=== PATIENT | female | born 1955 | race American Indian/Alaskan Native ===

== ENCOUNTER 2017-08-11 18:31 | Inpatient (IN) | payer BC, MEDICAID, OTHER ==
[2017-08-11 18:32] VITALS: BMI 24.1
[2017-08-11 20:42] LABS: BASO # 0.1 K/uL (0.0-0.2); BASO % 1.2 % (0.0-2.0); EOS # 0.1 K/uL (0.0-0.7); EOS % 0.9 % (0.0-4.0); HEMATOCRIT 38.2 % (34.0-47.0); LYMPH # 2.2 K/uL (1.0-4.3); LYMPH % 25.7 % (20.0-40.0); MEAN CELL VOLUME 95.2 fL (81.0-99.0); MEAN CORPUSCULAR HEMOGLOBIN 31.5 pg (27.0-31.0); MEAN CORPUSCULAR HGB CONC 33.1 g/dL (33.0-37.0); MEAN PLATELET VOLUME 9.6 fL (7.2-11.7); MONO # 0.8 K/uL (0.0-0.8); MONO % 9.4 % (0.0-10.0); NRBC % 0.1 % (0.0-2.0); RED CELL DISTRIBUTION WIDTH 13.3 % (11.5-14.5); WHITE BLOOD COUNT 8.5 K/uL (4.8-10.8)
--- NOTE | 2017-08-11 20:50 | C.PDOC ---
History Of Present Illness 62 year old female presents to the ER prescreened for detox program from heroin and cocaine. Has no physical complaints at this time but reports occasional palpitations at times. She also has uncontrolled hypertension. Patient has a PMHx of HTN, GERD, right foot/right leg surgery from trauma, smokes a pack of cigarettes a day, is on metoprolol and amlodipine, and has no known allergies. Chief Complaint (Nursing): Substance Abuse History Per: Patient History/Exam Limitations: no limitations Onset/Duration Of Symptoms: Days Current Symptoms Are (Timing): Still Present Suicide/Self Injury Attempted (Context): None Modifying Factor(s): Narcotics, Cocaine Severity: Moderate Pain Scale Rating Of: 4 Associated Symptoms: denies: Depression, Suicidal Thoughts, Suicidal Plan Involuntary Hold By: None Recent travel outside of the [place]: No Past Medical History Reviewed: Historical Data, Nursing Documentation, Vital Signs Vital Signs: Last Vital Signs Temp 98.6 F 08/12/17 00:53 Pulse 90 08/12/17 00:53 Resp 18 08/12/17 00:53 BP 166/99 H 08/12/17 00:53 Pulse Ox 99 08/12/17 00:53 - Medical History PMH: GERD, HTN - [facility] DETOXIFICATION SERVICES FOR SUBSTANCE ABUSE TREATMENT (12/11/15) Family History: States: Unknown Family Hx - Social History Hx Tobacco Use: Yes Hx Alcohol Use: Yes (occasional ) Hx Substance Use: Yes - Immunization History Hx Tetanus Toxoid Vaccination: Yes Hx Influenza Vaccination: No Hx Pneumococcal Vaccination: No Review Of Systems Constitutional: Negative for: Fever, Chills Eyes: Negative for: Pain ENT: Negative for: Ear Pain Cardiovascular: Positive for: Palpitations. Negative for: Chest Pain Respiratory: Negative for: Cough, Shortness of Breath Gastrointestinal: Negative for: Nausea, Vomiting, Abdominal Pain, Diarrhea Genitourinary: Negative for: Dysuria Musculoskeletal: Negative for: Neck Pain Skin: Negative for: Rash Neurological: Negative for: Weakness Psych: Negative for: Anxiety, Psychosis Physical Exam - Physical Exam Appears: Non-toxic, No Acute Distress Skin: Normal Color, Warm, Dry Head: Atraumatic, Normacephalic Eye(s): bilateral: Normal Inspection Oral Mucosa: Moist Tongue: Normal Appearing Lips: Normal Appearing Teeth: Normal Dentition Gingiva: Normal Appearing Neck: Normal, Supple Chest: Symmetrical, No Tenderness Cardiovascular: Rhythm Regular Respiratory: Normal Breath Sounds, No Rales, No Rhonchi, No Wheezing Gastrointestinal/Abdominal: Soft, No Tenderness Neurological/Psych: Oriented x3, Normal Speech Gait: Steady ED Course And Treatment - Laboratory Results Result Diagrams: 08/11/17 20:39 08/11/17 20:39 ECG: Interpreted By Me, Viewed By Me ECG Rhythm: Sinus Rhythm ECG Interpretation: Normal Interpretation Of ECG: NV: 136, QRS: 80, QT: 346, QTc: 423. LVH, left atrial enlargement. Rate From EC O2 Sat by Pulse Oximetry: 20 Medical Decision Making Medical Decision Making: Plan: * EKG * CMP * UDS * CBC * CXR * Upreg * UA Clonidine 0.2mg administered for her BP of 227/126. Repeat BP shows reading of 197/100 from 227/126. further improvement of her bp. ekg unremarkable. Disposition Counseled Patient/Family Regarding: Diagnosis - Disposition Disposition: HOSPITALIZED Disposition Time: 02:00 Condition: STABLE - Clinical Impression Clinical Impression: Drug dependence, Drug abuse, Opiate dependence - Scribe Statement The provider has reviewed the documentation as recorded by the Scribarnie Goodson All medical record entries made by the Scribe were at my direction and personally dictated by me. I have reviewed the chart and agree that the record accurately reflects my personal performance of the history, physical exam, medical decision making, and the department course for this patient. I have also personally directed, reviewed, and agree with the discharge instructions and disposition.
[2017-08-11 20:55] LABS: ALB/GLOB RATIO 1.4 (1.0-2.1); ALKALINE PHOSPHATASE 75 U/L (38-126); ALT/SGPT 28 U/L (9-52); AST/SGOT 27 U/L (14-36); BILIRUBIN,TOTAL 0.5 mg/dL (0.2-1.3); BLOOD UREA NITROGEN 20 mg/dL (7-17); CALCIUM 8.8 mg/dl (8.6-10.4); CARBON DIOXIDE 31 mmol/L (22-30); CHLORIDE 101 mmol/L (98-107); GFR AFRICAN-AMERICAN 55; GLUCOSE,RANDOM 92 mg/dL (65-105); POTASSIUM 4.7 mmol/L (3.6-5.2); SODIUM 137 mmol/L (132-148)
[2017-08-11 21:19] LABS: RBC URINE 1 /hpf (0-3); TRANSITIONAL EPITHIAL < 1 /hpf (0-3); URINE BACTERIA RARE (<OCC); URINE BILIRUBIN NEGATIVE (NEGATIVE); URINE BLOOD NEGATIVE (NEGATIVE); URINE CALCIUM OXALATE CRYSTALS RARE /hpf (<OCC); URINE COLOR Yellow (YELLOW); URINE GLUCOSE (UA) NORMAL (Normal); URINE KETONE NEGATIVE (NEGATIVE); URINE PROTEIN 2+ mg/dL (NEGATIVE); WBC URINE 4 /hpf (0-5)
[2017-08-11 21:21] LABS: URINE LEUKOCYTE ESTERASE NEGATIVE Leu/uL (Negative)
--- NOTE | 2017-08-12 06:23 | PCM.BM ---
<Linda Melendez - Last Filed: 08/12/17 06:20> Treatment Plan Problems - Problems identified on initial assessmt Opiate Dependence Date Initiated: 08/12/17 Time Initiated: 01:30 Assessment reference: NA Status: Active Treatment assets and liabiliti Patient Assests: ADL independent Patient Liabilities: live alone, substance abuse - Milieu Protocol Maintain good personal hygiene: daily Encourage regular showers, daily Remind patient to perform daily oral care, daily Assist patient to perform ADL's Maintain personal safety: every other day Educate patient to report safety concerns to staff, every other day Monitor environment for contraband/sharps Medication safety: Monitor for expected outcome, potential side effects: every other day, Assess barriers to learning: every other day, Assess readiness for medication education: every other day <Sirisha Schneider - Last Filed: 08/12/17 18:21> - Diagnosis (1) Opiate dependence Status: Acute Interventions: 08/12/17 18:21 * Assess 7x/week regarding severity of withdrawal * Educate regarding risks, benefits, side effects and alternatives of medications * Use Motivational Interviewing for abstinence * Use CBT for relapse prevention * Medication management for withdrawal symptoms * Encourage medication assisted treatment * <Belle Benedict - Last Filed: 08/13/17 08:17> Family Contact Family involvement: Famliy/SO not involved Family contact: Patient declines to allow family contact at present - Goals for Treatment Patient goals for treatment: Complete detox and transition to [facility]. Discharge/Continuing Care - Education Needs Education Needs: Patient Medication, Patient Diagnosis/Disease Process, Patient Coping Skills, Patient Anger Management skills, Patient Placement options, Patient Community resources, Patient Pain (management) - Discharge Discharge Criteria: No longer exhibiting s/s of withdrawal, Reduction of target symptoms - Treatment Team Participation Patient/Family/SO Statement: 08/13/17 08:17 "[facility] go to [facility] Discussed with Family/SO: No Was Patient/Family/SO present at Treatment Team Meeting: Yes
[2017-08-12] MEDS ORDERED: Aluminum Hydroxide/Magnesium Hydroxide Susp (30 mL) PO PRN (06:37)
[2017-08-12] MEDS: Pantoprazole 40 mg EC Tab PO SCH (09:20)
--- NOTE | 2017-08-12 10:57 | RAD ---
HISTORY: Palpations COMPARISON: None available. TECHNIQUE: Chest, one view. FINDINGS: LUNGS: Biapical pleural thickening. No focal consolidation. Please note that chest x-ray has limited sensitivity for the detection of pulmonary masses. PLEURA: No significant pleural effusion identified. No definite pneumothorax . CARDIOVASCULAR: Heart size appears within normal limits. Ectatic aorta. OSSEOUS STRUCTURES: Degenerative changes of the spine. VISUALIZED UPPER ABDOMEN: Unremarkable. OTHER FINDINGS: None. IMPRESSION: Biapical pleural thickening. Ectatic aorta. Degenerative changes of the spine.
--- NOTE | 2017-08-12 14:55 | PCM.PSYCH ---
Initial Psychiatric Evaluation - Initial Psychiatric Evaluation Chief Complaint (in patient's own words): " I need help"----> Heroin and Cocaine Detox History of Present Illness and Precipitating Events: The patient is seen, chart reviewed and case discussed. 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 Patient had an education level up to first year of college. The patient reports heroin use for about 3-4 years; using 5-7 bags intranasally everyday. Patient stated that she started using heroin as result of pain management post right arm surgery. Patient last use heroin, cocaine and crack yesterday morning (08/11/17). Furthermore, patient states that she started using cocaine and crack before heroin just for experimental excitement. Patient states that she uses on average 5-6 pills of xanax daily, which she gets or buy off the street Patient smokes 5-10 cigarettes daily for many years now. Currently, not interested in nicotine patch as a result of side-effects of elevated BP from last use during detox admission Patient admits to moderate alcohol use ( denies shakes or hx of DTs). Patient has been to detox three times and rehabilitation once. She has never been to a methadone maintenance or Suboxone programs. Upon discharge from last detox admission at [facility] in 2015, patient was referred to [facility]; patient states that she called several times but was unable to receive an appointment or response. Past psych history: admits to anxiety (Not clinically diagnosed) Family psych history: Denies Medical history: High blood pressure and GERD Current Medications: Active Medications Generic Name Dose Route Start Last Admin Trade Name Freq PRN Reason Stop Dose Admin Al Hydrox/Mg Hydrox/Simethicone 30 ml 08/12/17 06:37 Maalox 30 Ml PO TID PRN Indigestion / Heartburn Amlodipine Besylate 5 mg 08/12/17 10:00 08/12/17 09:20 Norvasc PO 5 mg DAILY ELSIE Administration Chlordiazepoxide 25 mg 08/12/17 12:00 08/12/17 12:44 Librium PO 08/16/17 11:59 25 mg Q6 ELSIE Administration Taper Clonidine HCl 0.1 mg 08/12/17 06:37 08/12/17 06:47 Catapres PO 0.1 mg Q4H PRN Administration BP>150/100 pr P>100 Gabapentin 100 mg 08/12/17 10:00 08/12/17 13:26 Neurontin PO 100 mg TID ELSIE Administration Hydroxyzine HCl 25 mg 08/12/17 06:39 Atarax PO Q4H PRN Anxiety Loperamide HCl 2 mg 08/12/17 06:37 Imodium PO Q8 PRN Diarrhea Lorazepam 1 mg 08/12/17 06:39 Ativan PO Q6H PRN severe anxiety max 3x/24h Losartan Potassium 50 mg 08/12/17 10:00 08/12/17 09:19 Cozaar PO 50 mg BID ELSIE Administration Metoprolol Tartrate 50 mg 08/12/17 10:00 08/12/17 09:19 Lopressor PO 50 mg BID ELSIE Administration Ondansetron HCl 4 mg 08/12/17 06:37 Zofran Tab PO Q8 PRN Nausea/Vomiting Pantoprazole Sodium 40 mg 08/12/17 10:00 08/12/17 09:20 Protonix Ec Tab PO 40 mg DAILY ELSIE Administration Trazodone HCl 50 mg 08/12/17 22:00 Desyrel PO HS ELSIE Past Psychiatric History - Past Psychiatric History Pertinent Medical Hx (Current Medical&Sleep Prob, Allergies): Allergies Allergy/AdvReac Type Severity Reaction Status Date / Time No Known Allergies Allergy Verified 08/11/17 18:55 Ondansetron ODT [Zofran ODT] 4 mg PO Q8 PRN #24 odt 08/13/16 Ibuprofen [Motrin Tab] 400 mg PO Q6H PRN #0 tab 10/09/16 Losartan [Cozaar] 50 mg PO BID #0 tab 10/09/16 Metoprolol Tartrate [Lopressor] 50 mg PO BID #0 tab 10/09/16 Pantoprazole Sodium [Protonix] 40 mg PO DAILY #14 ect 10/09/16 Potassium Chloride [K-Dur 20 mEq ER Tab] 20 meq PO BRK #0 tab 10/09/16 amLODIPine [Norvasc] 2.5 mg PO DAILY #0 tab 10/09/16 Alendronate [Fosamax] 70 mg PO DAILY 08/11/17 Review of Systems - Neurological Neurological: UNREMARKABLE - Psychiatric Psychiatric: Anxiety Mental Status Examination - Affect Affect: Constricted - Motor Activity Motor Activity: Calm - Reliability in Providing Information Reliability in Providing Information: Fair - Speech Speech: Organized - Mood Mood: Anxious - Obsessions/Compulsions Obsessions: No Compulsions: No - Cognitive Functions Orientation: Person, Place, Situation Sensorium: Alert Attention/Concentration: Attentive Estimate of Intelligence: Average Judgement: Intact, as evidence by: Insight regarding need for hospitalization Memory: Recent intact, as evidence by: Ability to recall events of the day - Risk Risk: Withdrawal - Strength & Assets Inventory Strength & Assets Inventory: Cooperative - Limitations Limitations: Living alone DSM 5 DX - DSM 5 DSM 5 Diagnosis: Primary: Opioid withdrawal Opioid use disorder, severe Cocaine use disorder, severe Alcohol use disorder, mild Anxiety disorder-unspecified Tobacco use disorder, moderate - Recommended/Plan of Treatment Treatment Recommendations and Plan of Treatment: Opioid use disorder: -Patient does not want subutex or methadone at the moment, but will request if withdrawal symptoms worsens or increase craving -When necessary medications -Support and psychoeducation -Motivational interviewing -Maintenance medications after discharge Cocaine use disorder: -Gabapentin -Use RI for aftercare and abstinence. Alcohol use disorder ( Moderate): - Monitor sxs -Librium taper - RI for abstinence Anxiety disorder-- Unspecified: - Relaxation skills - CBT - Gabapentin Benzodiazepines use disorder (Xanax) - Librium taper Projected ELOS: 4 Prognosis: Good with treatment Discharge Plan and Discharge Criteria: Refer for outpatient, followed by MAT
[2017-08-12] MEDS ORDERED: Buprenorphine Hydrochloride 2 mg SL ONE ×2 (18:38→21:43)
--- NOTE | 2017-08-12 23:36 | CARD ---
APPROVED REPORT EKG Measurement Heart [id number] <Conclusion> Normal sinus rhythm with sinus arrhythmia Possible Left atrial enlargement Left ventricular hypertrophy Abnormal ECG
[2017-08-13] MEDS: Pantoprazole 40 mg EC Tab PO SCH (10:02)
[2017-08-13] MEDS: Buprenorphine Hydrochloride 2 mg SL SCH (10:03)
--- NOTE | 2017-08-13 16:24 | PCM.PYCHDC ---
Mental Status Examination - Mental Status Examination Orientation: Person, Place, Situation, Time Memory: Intact Mood: Depressed Affect: Depressed Discharge Summary - Discharge Note Reason for Hospitalization: The patient is seen, chart reviewed and case discussed. 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. Patient had an education level up to first year of college. The patient reports heroin use for about 3-4 years; using 5-7 bags intranasally everyday. Patient stated that she started using heroin as result of pain management post right arm surgery. Patient last use heroin, cocaine and crack yesterday morning (08/11/17). Furthermore, patient states that she started using cocaine and crack before heroin just for experimental excitement. Patient states that she uses on average 5-6 pills of xanax daily, which she gets or buy off the street Patient smokes 5-10 cigarettes daily for many years now. Currently, not interested in nicotine patch as a result of side-effects of elevated BP from last use during detox admission Patient has been to detox three times and rehabilitation once. She has never been to a methadone maintenance or Suboxone programs. Upon discharge from last detox admission at [facility] in 2016, patient was referred to [facility]; patient states that she called several times but was unable to receive an appointment or response. Past psych history: admits to anxiety (Not clinically diagnosed) Family psych history: Denies Medical history: High blood pressure and GERD Consultations:: List each consultation separately and include: 1. Reason for request. 2. Findings. 3. Follow-up Summary of Hospital Course include:: 1. Description of specific treatment plan utilized for patients during their course of treatmen. 2. Summarize the time- course for resolution of acute symptoms and/or regressed behaviors. 3. Describe issues identified and worked on during hospitalization. 4. Describe medication utilized. 5. Describe medical problems identified and treated. 6. Reassessment of suicide risk Summary of Hospital Course: The patient is seen, chart reviewed and case discussed. 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. Patient had an education level up to first year of college. The patient reports heroin use for about 3-4 years; using 5-7 bags intranasally everyday. Patient stated that she started using heroin as result of pain management post right arm surgery. Patient last use heroin, cocaine and crack yesterday morning (08/11/17). Furthermore, patient states that she started using cocaine and crack before heroin just for experimental excitement. Patient states that she uses on average 5-6 pills of xanax daily, which she gets or buy off the street Patient smokes 5-10 cigarettes daily for many years now. Currently, not interested in nicotine patch as a result of side-effects of elevated BP from last use during detox admission Patient admits to moderate alcohol use ( denies shakes or hx of DTs). Patient has been to detox three times and rehabilitation once. She has never been to a methadone maintenance or Suboxone programs. Upon discharge from last detox admission at [facility] in 2015, patient was referred to [facility]; patient states that she called several times but was unable to receive an appointment or response. Past psych history: admits to anxiety (Not clinically diagnosed) Family psych history: Denies Medical history: High blood pressure and GERD - Final Diagnosis (DSM 5) Condition upon Discharge: STABLE Disposition: HOME/ ROUTINE Follow-up Treatment Plan: Opioid use disorder: -Patient does not want subutex or methadone at the moment, but will request if withdrawal symptoms worsens or increase craving -When necessary medications -Support and psychoeducation -Motivational interviewing -Maintenance medications after discharge Cocaine use disorder: -Gabapentin -Use FL for aftercare and abstinence. Alcohol use disorder ( Moderate): - Monitor sxs -Librium taper - FL for abstinence Anxiety disorder-- Unspecified: - Relaxation skills - CBT - Gabapentin Benzodiazepines use disorder (Xanax) - Librium taper
--- NOTE | 2017-08-13 16:28 | PCM.PYCHPN ---
Psychiatric Progress Note - Psychiatric Progress Note Patient seen today, length of contact: 15 minutes Patient Chief Complaint: "I am okay, I am trying" Problems Identified/Issues Discussed: The pt is seen, chart reviewed, case discussed with staff. The pt is complaint with medications and reports no side-effects Symptoms are improving but needs more time to stabilize; patient complains of moderate sleep disturbance After care discussed, support and psycoeducation given Medication Change: Yes (Detox change daily, Trazadone increased to 100mg) Medical Record Reviewed: Yes Mental Status Examination - Cognitive Function Orientation: Person, Place, Situation Memory: Intact Attention: WNL Concentration: WNL Association: WNL - Mood Mood: Depressed - Affect Affect: Depressed - Speech Speech: Appropriate - Formal Thought Process Formal Thought Process: No Impairment - Suicidal Ideation Suicidal Ideation: No - Homicidal Ideation Homicidal Ideation: No Goal/Treatment Plan - Goal/Treatment Plan Need for Continued Stay: Discharge may exacerbated symptoms Progress Toward Problem(s) and Goals/Treatment Plan: Subutex detox Librium taper Gabapentin 100mg PO TID Atarax 25mg PO Q4H PRN Ativan 1mg PO Q6H PRN Imodium 2mg PO Q8 PRN ( for diarrhea symptoms) Clonidine 0.1mg PO Q8 PRN Trazadone 100mg PO HS Attend groups and activities Supportive therapy and psychoeducation HI for abstinence CBT for relapse prevention Encourage MAT Refer to rehab or IOP, and self-help groups - Smoking Cessation Smoking Cessation Initiated: No
[2017-08-14] MEDS: Pantoprazole 40 mg EC Tab PO SCH (09:43)
[2017-08-14] MEDS: Buprenorphine Hydrochloride 2 mg SL SCH (09:44)
--- NOTE | 2017-08-14 11:25 | PCM.PYCHPN ---
Psychiatric Progress Note - Psychiatric Progress Note Patient seen today, length of contact: 15 minutes Patient Chief Complaint: " I am doing well, I slept well last night" Problems Identified/Issues Discussed: The pt is seen, chart reviewed, case discussed with staff. The pt is complaint with medications and reports no side-effects Symptoms are improving but needs more time to stabilize; patient's sleep is improving After care discussed, support and psycoeducation given Medication Change: Yes (Detox change daily) Medical Record Reviewed: Yes Mental Status Examination - Cognitive Function Orientation: Person, Place, Situation Memory: Intact Attention: WNL Concentration: WNL Association: WNL - Mood Mood: Depressed - Affect Affect: Depressed - Speech Speech: Appropriate - Formal Thought Process Formal Thought Process: No Impairment - Suicidal Ideation Suicidal Ideation: No - Homicidal Ideation Homicidal Ideation: No Goal/Treatment Plan - Goal/Treatment Plan Need for Continued Stay: Discharge may exacerbated symptoms Progress Toward Problem(s) and Goals/Treatment Plan: Subutex detox Librium taper Gabapentin 100mg PO TID Atarax 25mg PO Q4H PRN Ativan 1mg PO Q6H PRN Imodium 2mg PO Q8 PRN ( for diarrhea symptoms) Clonidine 0.1mg PO Q8 PRN Trazadone 100mg PO HS Attend groups and activities Supportive therapy and psychoeducation AL for abstinence CBT for relapse prevention Encourage MAT Refer to rehab or IOP, and self-help groups - Smoking Cessation Smoking Cessation Initiated: No Reason for not providing: Currently, patient does not want nictoine patch
[2017-08-15] MEDS: Pantoprazole 40 mg EC Tab PO SCH (10:41)
[2017-08-15] MEDS: Buprenorphine Hydrochloride 2 mg SL SCH (10:43)
--- NOTE | 2017-08-15 14:36 | PCM.PYCHPN ---
Psychiatric Progress Note - Psychiatric Progress Note Patient seen today, length of contact: 15 minutes Patient Chief Complaint: "I'm feeling okay" Problems Identified/Issues Discussed: The pt is seen, chart reviewed, case discussed with staff. Patient stated that she is feeling okay. The pt is compliant with medications and reports no side- effects. Symptoms are improving but needs more time to stabilize. After care discussed, support and psychoeducation given DSM 5 Symptoms Update: Opioid use disorder Cocaine use disorder HTN Medication Change: Yes (Detox change daily) Medical Record Reviewed: Yes Mental Status Examination - Cognitive Function Orientation: Person, Place, Situation Memory: Intact Attention: WNL Concentration: WNL Association: WNL - Mood Mood: Anxious - Affect Affect: Constricted, Depressed - Speech Speech: Appropriate - Formal Thought Process Formal Thought Process: No Impairment Psychotic Thoughts and Behaviors: Denied - Suicidal Ideation Suicidal Ideation: No - Homicidal Ideation Homicidal Ideation: No Goal/Treatment Plan - Goal/Treatment Plan Need for Continued Stay: Discharge may exacerbated symptoms Progress Toward Problem(s) and Goals/Treatment Plan: ubutex detox Librium taper Monitor vitals Gabapentin 100mg PO TID Atarax 25mg PO Q4H PRN Ativan 1mg PO Q6H PRN Imodium 2mg PO Q8 PRN ( for diarrhea symptoms) Clonidine 0.1mg PO Q8 PRN Trazadone 100mg PO HS Attend groups and activities Supportive therapy and psychoeducation [place] for abstinence CBT for relapse prevention Encourage MAT Refer to rehab or IOP, and self-help groups Estimated Date of D/C: 08/18/17 - Smoking Cessation Smoking Cessation Initiated: Yes
[2017-08-16 06:18] VITALS: RESP 18
--- NOTE | 2017-08-16 09:28 | PCM.PYCHDC ---
Mental Status Examination - Mental Status Examination Orientation: Person, Place, Situation, Time Memory: Impaired Mood: Anxious Affect: Constricted Speech: Slurred Attention: Poor Concentration: Poor Association: WNL Fund of Knowledge: Poor Formal Thought Process: No Impairment Suicidal Ideation: No Current Homicidal Ideation?: No Discharge Summary - Discharge Note Reason for Hospitalization: Heroin detox Consultations:: List each consultation separately and include: 1. Reason for request. 2. Findings. 3. Follow-up Summary of Hospital Course include:: 1. Description of specific treatment plan utilized for patients during their course of treatmen. 2. Summarize the time- course for resolution of acute symptoms and/or regressed behaviors. 3. Describe issues identified and worked on during hospitalization. 4. Describe medication utilized. 5. Describe medical problems identified and treated. 6. Reassessment of suicide risk Summary of Hospital Course: The pt was admitted and started on treatment with psychotherapy, support, psychoeducation and medications. SC and CBT used. The pt attended groups and activities, as well as milieu therapy. All the risks and benefits of medications are discussed and the patient understood and agreed. The pt improved with the treatments provided. After care discussed with the patient. She left one day early bc of over- sedation with meds and [place]. She will go to [facility] in - Final Diagnosis (DSM 5) Condition upon Discharge: STABLE DSM 5: Primary: Opioid withdrawal Opioid use disorder, severe Cocaine use disorder, severe Alcohol use disorder, mild Anxiety disorder-unspecified Tobacco use disorder, moderate Disposition: HOME/ ROUTINE Follow-up Treatment Plan: Continue below medications after discharge. Follow after care plan as discussed. Use relapse prevention skills Return to ER or call 911 if suicidal, homicidal or symptoms relapse. Stay away from stress, alcohol and drugs. See primary doctor regularly and get labs. Prescriptions/Medication Reconciliation: amLODIPine [Norvasc] 5 mg PO DAILY #30 tab hydrOXYzine HCl [Atarax] 25 mg PO BID PRN #60 tab PRN Reason: Anxiety Losartan [Cozaar] 50 mg PO BID #60 tab Metoprolol Tartrate [Lopressor] 50 mg PO BID #60 tab Pantoprazole [Protonix EC Tab] 40 mg PO DAILY #30 ect traZODone [Desyrel] 100 mg PO HS #30 tab
[2017-08-16] MEDS: Pantoprazole 40 mg EC Tab PO SCH (10:01)
[2017-08-16] MEDS: Buprenorphine Hydrochloride 2 mg SL SCH (10:04)
[2017-08-16 10:15] VITALS: O2SAT 99
[2017-08-16 11:26] VITALS: BP 148/86; PULSE 85; TEMP 98.1
== END 2017-08-16 11:15 | disposition home or self-care (01) | DRG 745 ==
LOC: C.ER 18:31 → C.7D 22:46
PROVIDERS: ADMIT Psychiatry & Neurology Psychiatry; ATTEND Psychiatry & Neurology Psychiatry
PROC: HZ2ZZZZ Detoxification Services for Substance Abuse Treatment (ICD-10-PCS; principal; 2017-08-11)
DX: F11.23 Opioid dependence with withdrawal (principal); F14.20 Cocaine dependence, uncomplicated; F17.200 Nicotine dependence, unspecified, uncomplicated; F41.9 Anxiety disorder, unspecified; I10 Essential (primary) hypertension; K21.9 Gastro-esophageal reflux disease without esophagitis; F10.10 Alcohol abuse, uncomplicated; Z79.899 Other long term (current) drug therapy

== ENCOUNTER 2018-01-17 17:49 | Inpatient (IN) | payer BC, MEDICAID, OTHER ==
[2018-01-17 17:49] VITALS: BMI 24.1
--- NOTE | 2018-01-17 18:37 | C.PDOC ---
History Of Present Illness <Jeanette Melton - Last Filed: 01/17/18 19:02> <Shan Pickens - Last Filed: 01/17/18 23:33> [id number] female PMHx of HTN, smoking crack, snorting heroin and using ativan presents to ED for detox. Patient states last use was yesterday. states she snorts about 5 bags a day and sometimes ativan. Patient also complaints of frontal headache, similar to headaches in the post. . Denies fever, neck stiffness, blurry vision, photophobia, or any other physical complaints. Patient states she did not take anything for pain. (Jeanette Melton) History Per: Patient History/Exam Limitations: no limitations Onset/Duration Of Symptoms: Hrs Current Symptoms Are (Timing): Still Present Suicide/Self Injury Attempted (Context): None Modifying Factor(s): Crack, Other (ativan ) Associated Symptoms: denies: Suicidal Thoughts, Suicidal Plan Involuntary Hold By: None Recent travel outside of the [place]: No <Jeanette Melton - Last Filed: 01/17/18 19:02> <Shan Pickens - Last Filed: 01/17/18 23:33> Time Seen by Provider: 01/17/18 18:29 Chief Complaint (Nursing): Substance Abuse Past Medical History Reviewed: Historical Data, Nursing Documentation, Vital Signs - Medical History PMH: GERD, HTN Family History: States: Unknown Family Hx - Social History Hx Tobacco Use: Yes Hx Alcohol Use: Yes Hx Substance Use: Yes - Immunization History Hx Tetanus Toxoid Vaccination: Yes Hx Influenza Vaccination: No Hx Pneumococcal Vaccination: No <Jeanette Melton - Last Filed: 01/17/18 19:02> Vital Signs: Last Vital Signs Temp 98.1 F 01/17/18 20:27 Pulse 78 01/17/18 20:27 Resp 18 01/17/18 20:27 BP 132/90 01/17/18 20:27 Pulse Ox 100 01/17/18 20:27 - [facility] Procedures DETOXIFICATION SERVICES FOR SUBSTANCE ABUSE TREATMENT (08/11/17) Review Of Systems Constitutional: Negative for: Fever, Chills Respiratory: Negative for: Shortness of Breath Gastrointestinal: Negative for: Nausea, Vomiting, Abdominal Pain, Diarrhea Musculoskeletal: Negative for: Arm Pain Neurological: Positive for: Headache. Negative for: Weakness, Numbness Psych: Negative for: Suicidal ideation <Jeanette Melton - Last Filed: 01/17/18 19:02> Physical Exam - Physical Exam Appears: Well, Non-toxic, No Acute Distress, Other (Thin) Skin: Normal Color, Warm, Dry Head: Atraumatic, Normacephalic Eye(s): bilateral: Normal Inspection, PERRL, EOMI Oral Mucosa: Moist Throat: Normal, No Erythema, No Exudate, No Drooling Neck: Supple Chest: Symmetrical, No Tenderness Cardiovascular: Rhythm Regular, No Murmur Respiratory: Normal Breath Sounds, No Decreased Breath Sounds, No Rales, No Rhonchi, No Wheezing Gastrointestinal/Abdominal: Soft, No Tenderness, No Distention Extremity: Normal ROM, No Tenderness, No Pedal Edema, No Deformity Extremity: Bilateral: Normal Color And Temperature, Normal ROM Neurological/Psych: Oriented x3, Normal Speech, Normal Cognition Gait: Steady <Jeanette Melton - Last Filed: 01/17/18 19:02> ED Course And Treatment O2 Sat by Pulse Oximetry: 100 (RA) Pulse Ox Interpretation: Normal <Jeanette Melton - Last Filed: 01/17/18 19:02> - Laboratory Results Result Diagrams: 01/17/18 18:57 01/17/18 18:57 Pulse Ox Interpretation: Normal Reevaluation Time: 19:36 (Medically Cleared for Detox) Reassessment Condition: Improved - Physician Consult Information Outcome Of Conversation: 2000: d/w Crisis, ok to admit. <Shan Pickens - Last Filed: 01/17/18 23:33> Medical Decision Making <Jeanette Melton - Last Filed: 01/17/18 19:02> <Shan Pickens - Last Filed: 01/17/18 23:33> Medical Decision Making: Administered Motrin. Ordered blood work and urinalysis. crisis team aware, needs med clear for detox admission. (Jeanette Melton) 31 WBC's in urine c/w asymptomatic mild pyuria which may be observed and NOT treated with antibiotics at this time. IF pt becomes symptomatic, repeat UA is indicated. Patient sign out at 19:00 for work up Crisis evaluated the patient 21:00 patient admitted to detox (Shan Pickens) Disposition <Jeanette Melton - Last Filed: 01/17/18 19:02> Doctor Will See Patient In The: Hospital Counseled Patient/Family Regarding: Studies Performed, Diagnosis - Disposition Disposition Time: 20:07 <Shan Pickens - Last Filed: 01/17/18 23:33> - Disposition Disposition: HOME/ ROUTINE Condition: GOOD - Clinical Impression Clinical Impression: Opiate dependence - PA / ORNAMENTER HAND / Resident Statement MD/DO has reviewed & agrees with the documentation as recorded. - Scribe Statement The provider has reviewed the documentation as recorded by the Scribe <Jeanette Melton - Last Filed: 01/17/18 19:02> <Sahn Pickens - Last Filed: 01/17/18 23:33> - Scribe Statement Tevin Hernandez All medical record entries made by the Scribe were at my direction and personally dictated by me. I have reviewed the chart and agree that the record accurately reflects my personal performance of the history, physical exam, medical decision making, and the department course for this patient. I have also personally directed, reviewed, and agree with the discharge instructions and disposition. (Jeanette Melton)
[2018-01-17 19:05] LABS: BASO % 0.4 % (0.0-2.0); EOS # 0.2 K/uL (0.0-0.7); EOS % 2.4 % (0.0-4.0); LYMPH # 2.6 K/uL (1.0-4.3); LYMPH % 39.5 % (20.0-40.0); MEAN CELL VOLUME 95.1 fL (81.0-99.0); MEAN CORPUSCULAR HEMOGLOBIN 32.1 pg (27.0-31.0); MEAN CORPUSCULAR HGB CONC 33.7 g/dL (33.0-37.0); MEAN PLATELET VOLUME 9.9 fL (7.2-11.7); MONO # 0.6 K/uL (0.0-0.8); MONO % 9.4 % (0.0-10.0); NEUT # 3.1 K/uL (1.8-7.0); NEUT % 48.3 % (50.0-75.0); NRBC % 0.1 % (0.0-2.0); RBC 4.06 Mil/uL (3.80-5.20); RED CELL DISTRIBUTION WIDTH 13.1 % (11.5-14.5); WHITE BLOOD COUNT 6.5 K/uL (4.8-10.8)
[2018-01-17 19:12] LABS: SQUAMOUS EPITHIAL 3 /hpf (0-5); URINE BACTERIA RARE (<OCC); URINE BILIRUBIN NEGATIVE (NEGATIVE); URINE BLOOD NEGATIVE (NEGATIVE); URINE CLARITY Clear (Clear); URINE COLOR Yellow (YELLOW); URINE GLUCOSE (UA) NORMAL (Normal); URINE LEUKOCYTE ESTERASE 3+ Leu/uL (Negative); URINE PROTEIN NEGATIVE (NEGATIVE); URINE UROBILINOGEN NORMAL mg/dL (0.2-1.0)
[2018-01-17 19:25] LABS: BARBITURATES, UR NEGATIVE (NEGATIVE); BENZODIAZEPINES, UR NEGATIVE (NEGATIVE); PHENCYCLIDINE, UR NEGATIVE (NEGATIVE)
[2018-01-17 19:26] LABS: ALT/SGPT 20 U/L (9-52); AST/SGOT 28 U/L (14-36); BLOOD UREA NITROGEN 26 mg/dL (7-17); CALCIUM 9.6 mg/dl (8.6-10.4); GFR AFRICAN-AMERICAN 46; GFR NON-AFRICAN AMERICAN 38; OPIATES, UR POSITIVE (NEGATIVE)
--- NOTE | 2018-01-17 20:17 | PCM.BM ---
<Trevon Reyna - Last Filed: 01/17/18 20:16> Treatment Plan Problems - Problems identified on initial assessmt potent for opiate withdrawal Date Initiated: 01/17/18 Time Initiated: 20:17 Status: Active Treatment assets and liabiliti Patient Assests: ADL independent, negotiates basic needs, cognitively intact Patient Liabilities: substance abuse, medical problems - Milieu Protocol Maintain good personal hygiene: daily Encourage regular showers, daily Remind patient to perform daily oral care, daily Assist patient to perform ADL's Conduct patient checks and document Observation sheet: Q15 minutes Maintain personal safety: every shift Educate patient to report safety concerns to staff, every shift Monitor environment for contraband/sharps Medication safety: Monitor for expected outcome, potential side effects: every shift, Assess barriers to learning: every shift, Assess readiness for medication education: every shift <Sirisha Schneider - Last Filed: 01/19/18 21:52> - Diagnosis (1) Opiate dependence Status: Acute Interventions: 01/19/18 21:52 * Assess 7x/week regarding severity of withdrawal * Educate regarding risks, benefits, side effects and alternatives of medications * Use Motivational Interviewing for abstinence * Use CBT for relapse prevention * Medication management for withdrawal symptoms * Encourage medication assisted treatment *
[2018-01-17] MEDS ORDERED: Magnesium Hydroxide Susp 30 ml UD PO PRN (21:38)
[2018-01-17] MEDS ORDERED: Aluminum Hydroxide/Magnesium Hydroxide Susp (30 mL) PO PRN (21:38)
[2018-01-17] MEDS ORDERED: Benzocaine/Menthol (Cepacol) Lozenge PO PRN (21:38)
[2018-01-17] MEDS ORDERED: guaiFENesin DM 200 mg-20 mg/10 ml UD PO PRN (21:38)
[2018-01-17] MEDS ORDERED: Buprenorphine Hydrochloride 2 mg SL ONE ×3 (22:06→23:28)
[2018-01-18] MEDS ORDERED: Buprenorphine Hydrochloride 8 mg SL ONE (09:00)
[2018-01-18] MEDS: Pantoprazole 40 mg EC Tab PO SCH (09:07)
--- NOTE | 2018-01-18 09:12 | PCM.PSYCH ---
Initial Psychiatric Evaluation - Initial Psychiatric Evaluation Type of Admission: Voluntary Legal Status: Capacity Chief Complaint (in patient's own words): I need help History of Present Illness and Precipitating Events: Patient is a 62 years old AAF, came to the [facility] to get help in detox. Patient denies any history of any inpatient psychiatric hospitalizations. However she reports history of previous admission to detox at [facility]. Patient also admitted to facility in [place] for detox and rehabilitation. Patient reports of abusing heroin, cocaine, marijuana and xanax. She reports opiate injecting 20-30 bags of heroin daily, alone with some cocaine. She also reports abusing 2-3 Xanax bars daily. she reports withdrawal symptoms including nausea, vomiting, cramps, joint pains, headaches and sweating. she reports irritability and agitation but denies any feelings of hopelessness and helplessness. She denies any suicidal ideation or homicidal ideation she denies any auditory, visual, olfactory or gustatory hallucinations. PMH: HTN, back, knee and shoulder pain resulting from an accident, angina and acid reflux. Current Medications: Active Medications Generic Name Dose Route Start Last Admin Trade Name Freq PRN Reason Stop Dose Admin Al Hydrox/Mg Hydrox/Simethicone 30 ml 01/17/18 21:38 Maalox 30 Ml PO TID PRN Indigestion / Heartburn Amlodipine Besylate 5 mg 01/18/18 10:00 01/18/18 09:07 Norvasc PO 5 mg DAILY ELSIE Administration Benzocaine/Menthol 1 audra 01/17/18 21:38 Cepacol Sore Throat PO QID PRN Sore Throat Clonidine HCl 0.1 mg 01/17/18 21:38 01/18/18 06:28 Catapres PO 0.1 mg Q8 PRN Administration COWS Score More or Equal to 5 Guaifenesin/Dextromethorphan 10 ml 01/17/18 21:38 Robitussin Dm PO Q4H PRN Cough and congestion Hydroxyzine HCl 25 mg 01/18/18 00:00 01/18/18 06:28 Atarax PO 25 mg Q6 PRN Administration Anxiety Ibuprofen 600 mg 01/17/18 21:42 01/18/18 09:08 Motrin Tab PO 600 mg TID PRN Administration Pain, moderate (4-7) Loperamide HCl 2 mg 01/17/18 21:38 Imodium PO Q8 PRN Diarrhea Losartan Potassium 50 mg 01/18/18 10:00 Cozaar PO BID ELSIE Magnesium Hydroxide 30 ml 01/17/18 21:38 01/18/18 06:28 Milk Of Magnesia PO 01/20/18 21:39 30 ml BID PRN Administration Constipation Metoprolol Tartrate 50 mg 01/18/18 10:00 Lopressor PO BID ELSIE Ondansetron HCl 4 mg 01/17/18 21:38 Zofran Tab PO Q8 PRN Nausea/Vomiting Pantoprazole Sodium 40 mg 01/18/18 10:00 01/18/18 09:07 Protonix Ec Tab PO 40 mg DAILY ELSIE Administration Pseudoephedrine HCl 60 mg 01/17/18 21:38 Sudafed Tab PO QID PRN Nasal/Sinus Congestion Trazodone HCl 100 mg 01/17/18 21:50 Desyrel PO HS PRN Sleep Past Psychiatric History - Past Psychiatric History Previous Treatment History: Inpatient Pertinent Medical Hx (Current Medical&Sleep Prob, Allergies): Allergies Allergy/AdvReac Type Severity Reaction Status Date / Time No Known Allergies Allergy Verified 01/17/18 17:52 Ondansetron ODT [Zofran ODT] 4 mg PO Q8 PRN #24 odt 08/13/16 Ibuprofen [Motrin Tab] 400 mg PO Q6H PRN #0 tab 10/09/16 Losartan [Cozaar] 50 mg PO BID #0 tab 10/09/16 Metoprolol Tartrate [Lopressor] 50 mg PO BID #0 tab 10/09/16 Pantoprazole Sodium [Protonix] 40 mg PO DAILY #14 ect 10/09/16 Potassium Chloride [K-Dur 20 mEq ER Tab] 20 meq PO BRK #0 tab 10/09/16 Alendronate [Fosamax] 70 mg PO DAILY 08/11/17 Losartan [Cozaar] 50 mg PO BID #60 tab 08/16/17 Metoprolol Tartrate [Lopressor] 50 mg PO BID #60 tab 08/16/17 Pantoprazole [Protonix EC Tab] 40 mg PO DAILY #30 ect 08/16/17 amLODIPine [Norvasc] 5 mg PO DAILY #30 tab 08/16/17 hydrOXYzine HCl [Atarax] 25 mg PO BID PRN #60 tab 08/16/17 traZODone [Desyrel] 100 mg PO HS #30 tab 08/16/17 Review of Systems - Review of Systems All systems: reviewed and no additional remarkable complaints except - Psychiatric Psychiatric: Anxiety, Irritability. absent: Suicidal Ideation Mental Status Examination - Personal Presentation Personal Presentation: Looks stated age - Affect Affect: Constricted - Motor Activity Motor Activity: Calm - Reliability in Providing Information Reliability in Providing Information: Good - Speech Speech: Organized - Mood Mood: Depressed, Anxious - Formal Thought Process Formal Thought Process: No Impairment - Obsessions/Compulsions Obsessions: No Compulsions: No - Cognitive Functions Orientation: Person, Place, Situation, Time Sensorium: Alert Attention/Concentration: Attentive Abstract Thinking: [place] Estimate of Intelligence: Below average Judgement: Imparied, as evidence by: Poor judgement, Imparied, as evidence by: Lack of insight into illness - Risk Risk: Withdrawal, Diminished functioning - Limitations Limitations: Living alone DSM 5 DX - DSM 5 DSM 5 Diagnosis: Opioid use disorder severe Opioid withdrawal Cocaine use disorder Severe Sedative/hypnotic use disorder moderate - Recommended/Plan of Treatment Treatment Recommendations and Plan of Treatment: Opioid use disorder severe CBT Psychoeducation Supportive therapy, individual therapy Use AL for abstinence Opioid withdrawal CBT Psychoeducation Supportive therapy, individual therapy Clonidine when necessary Start subutex taper Start prn meds Cocaine use disorder Severe Monitor signs and symptoms Use AL for abstinence Sedative/hypnotic use disorder moderate Monitor signs and symptoms Use AL for abstinence - Smoking Cessation Smoking Cessation Initiated: No
[2018-01-19] MEDS: Pantoprazole 40 mg EC Tab PO SCH (09:25)
[2018-01-19] MEDS: Buprenorphine Hydrochloride 2 mg SL SCH (09:26)
--- NOTE | 2018-01-19 14:28 | PCM.PYCHPN ---
Psychiatric Progress Note - Psychiatric Progress Note Patient seen today, length of contact: 20 min Patient Chief Complaint: "I am tired" Problems Identified/Issues Discussed: Patient is seen and evaluated, chart reviewed and discussed with the nurse. Patient reports having decreased withdrawal symptoms. Patient reports mild nausea, sweating, and headaches. Patient reports sleeping better than yesterday and reports eating well. Patient is compliant with medications and reports no side effects. Symptoms are improving but still needs more time to stabilize. Support given, CBT and ID used briefly. After case discussed. Medication Change: Yes (detox changes daily) Medical Record Reviewed: Yes Mental Status Examination - Cognitive Function Orientation: Person, Place, Situation, Time Memory: Intact Attention: WNL Concentration: Poor Association: WNL Fund of Knowledge: WNL - Mood Mood: Depressed, Anxious - Affect Affect: Constricted - Speech Speech: Appropriate - Formal Thought Process Formal Thought Process: No Impairment - Suicidal Ideation Suicidal Ideation: No - Homicidal Ideation Homicidal Ideation: No Goal/Treatment Plan - Goal/Treatment Plan Need for Continued Stay: Discharge may exacerbated symptoms, Severe functional impairment Progress Toward Problem(s) and Goals/Treatment Plan: Subutex detox As needed medications Gabapentin for augmentation Attend groups and activities Supportive therapy and psychoeducation ID for abstinence CBT for relapse prevention Encourage MAT Refer to rehab or IOP Attend self-help groups as well - Smoking Cessation Smoking Cessation Initiated: Yes
[2018-01-20] MEDS: Pantoprazole 40 mg EC Tab PO SCH (10:12)
[2018-01-20] MEDS: Buprenorphine Hydrochloride 2 mg SL SCH (10:13)
--- NOTE | 2018-01-20 14:19 | PCM.PYCHPN ---
Psychiatric Progress Note - Psychiatric Progress Note Patient seen today, length of contact: 18 min Patient Chief Complaint: "I have stomach pain" Problems Identified/Issues Discussed: Patient is seen and evaluated, chart reviewed and discussed with the nurse. Patient reports having decreased withdrawal symptoms. Patient reports mild nausea, sweating, and abdominal cramps. Patient also reports a burning sensation in her stomach. Patient reports sleeping better than yesterday and reports eating well. Overall she reports mood is getting better. Patient continues to participate in group activities. Patient is compliant with medications and reports no side effects. Symptoms are improving but still needs more time to stabilize. Support given, CBT and NH used briefly. After care discussed. Medication Change: Yes (detox changes daily) Medical Record Reviewed: Yes Mental Status Examination - Cognitive Function Orientation: Person, Place, Situation, Time Memory: Intact Attention: WNL Concentration: Poor Association: WNL Fund of Knowledge: WNL - Mood Mood: Depressed, Anxious - Affect Affect: Constricted - Speech Speech: Appropriate - Formal Thought Process Formal Thought Process: No Impairment - Suicidal Ideation Suicidal Ideation: No - Homicidal Ideation Homicidal Ideation: No Goal/Treatment Plan - Goal/Treatment Plan Need for Continued Stay: Discharge may exacerbated symptoms, Severe functional impairment Progress Toward Problem(s) and Goals/Treatment Plan: Subutex detox As needed medications will be continued Gabapentin for augmentation Attend groups and activities Supportive therapy and psychoeducation NH for abstinence CBT for relapse prevention Encourage MAT Refer to rehab or IOP Attend self-help groups as well
[2018-01-21] MEDS: Buprenorphine Hydrochloride 2 mg SL SCH (10:33)
[2018-01-21] MEDS: Pantoprazole 40 mg EC Tab PO SCH (10:33)
--- NOTE | 2018-01-21 14:29 | PCM.PYCHPN ---
Psychiatric Progress Note - Psychiatric Progress Note Patient seen today, length of contact: 18 min Patient Chief Complaint: "I have a sore throat" Problems Identified/Issues Discussed: Patient is seen and evaluated, chart reviewed and discussed with the nurse. Patient reports having no more withdrawal symptoms. However, patient complains about a sore throat that started last night. Patient reports sleeping better and reports eating well. Overall she reports mood is getting better. Patient continues to participate in group activities. Patient is compliant with medications and reports no side effects. Support given, CBT and MD used briefly. After care discussed. Medication Change: Yes (detox changes daily) Medical Record Reviewed: Yes Mental Status Examination - Cognitive Function Orientation: Person, Place, Situation, Time Memory: Intact Attention: WNL Concentration: WNL Association: WNL Fund of Knowledge: WNL - Mood Mood: Anxious - Affect Affect: Broad - Speech Speech: Appropriate - Formal Thought Process Formal Thought Process: No Impairment - Suicidal Ideation Suicidal Ideation: No - Homicidal Ideation Homicidal Ideation: No Goal/Treatment Plan - Goal/Treatment Plan Need for Continued Stay: Discharge may exacerbated symptoms, Severe functional impairment Progress Toward Problem(s) and Goals/Treatment Plan: Subutex detox As needed medications will be continued Gabapentin for augmentation Attend groups and activities Supportive therapy and psychoeducation MD for abstinence CBT for relapse prevention Encourage MAT Refer to rehab or IOP Attend self-help groups as well
[2018-01-21 17:34] VITALS: RESP 18
[2018-01-22 06:21] VITALS: O2SAT 99
--- NOTE | 2018-01-22 09:01 | PCM.PYCHDC ---
Mental Status Examination - Mental Status Examination Orientation: Person, Place, Time Memory: Intact Mood: Neutral Affect: Broad Speech: Appropriate Attention: WNL Concentration: WNL Fund of Knowledge: WNL Formal Thought Process: No Impairment Suicidal Ideation: No Current Homicidal Ideation?: No Discharge Summary - Discharge Note Reason for Hospitalization: Opioid withdrawal Consultations:: List each consultation separately and include: 1. Reason for request. 2. Findings. 3. Follow-up Summary of Hospital Course include:: 1. Description of specific treatment plan utilized for patients during their course of treatmen. 2. Summarize the time- course for resolution of acute symptoms and/or regressed behaviors. 3. Describe issues identified and worked on during hospitalization. 4. Describe medication utilized. 5. Describe medical problems identified and treated. 6. Reassessment of suicide risk Summary of Hospital Course: Patient is a 62 years old AAF Patient denies any history of any inpatient psychiatric hospitalizations. However she reports history of previous admission to detox at [facility]. Patient also admitted to facility in [place] for detox and rehabilitation. Patient reports of abusing heroin, cocaine, marijuana and xanax. She reports opiate injecting 20-30 bags of heroin daily, alone with some cocaine. She also reports abusing 2-3 Xanax bars daily. she reports withdrawal symptoms including nausea, vomiting, cramps, joint pains, headaches and sweating. she reports irritability and agitation but denies any feelings of hopelessness and helplessness. She denies any suicidal ideation or homicidal ideation she denies any auditory, visual, olfactory or gustatory hallucinations. PMH: HTN, back, knee and shoulder pain resulting from an accident, angina and acid reflux. Hospital course: The pt was admitted and started on treatment with psychotherapy, support, psychoeducation and medications. HI and CBT used. The pt attended groups and activities, as well as milieu therapy. All the risks and benefits of medications are discussed and the patient understood and agreed. The pt improved with the treatments provided. After care discussed with the patient. She will [facility]. - Final Diagnosis (DSM 5) Condition upon Discharge: GOOD DSM 5: Opioid use disorder severe Opioid withdrawal Cocaine use disorder Severe Sedative/hypnotic use disorder moderate Disposition: HOME/ ROUTINE Follow-up Treatment Plan: Continue below medications after discharge. Follow after care plan as discussed. Use relapse prevention skills Return to ER or call 911 if suicidal, homicidal or symptoms relapse. Stay away from stress, alcohol and drugs. See primary doctor regularly and get labs. She will go to [facility]. Prescriptions/Medication Reconciliation: amLODIPine [Norvasc] 5 mg PO DAILY #30 tab hydrOXYzine HCl [Atarax] 25 mg PO BID PRN #30 tab PRN Reason: Anxiety Losartan [Cozaar] 50 mg PO BID #60 tab Metoprolol Tartrate [Lopressor] 50 mg PO BID #60 tab Pantoprazole [Protonix EC Tab] 40 mg PO DAILY #30 ect traZODone [Desyrel] 100 mg PO HS PRN #30 tab PRN Reason: Sleep
[2018-01-22] MEDS: Pantoprazole 40 mg EC Tab PO SCH (10:16)
[2018-01-22 11:09] VITALS: BP 129/82; PULSE 84; TEMP 98.5
== END 2018-01-22 11:12 | disposition home or self-care (01) | DRG 895 ==
LOC: C.ER 17:49 → C.7D 20:06
PROVIDERS: ADMIT Psychiatry & Neurology Psychiatry; ATTEND Psychiatry & Neurology Psychiatry
PROC: HZ2ZZZZ Detoxification Services for Substance Abuse Treatment (ICD-10-PCS; principal; 2018-01-17)
PROC: HZ56ZZZ Individual Psychotherapy for Substance Abuse Treatment, Psychoeducation (ICD-10-PCS; 2018-01-17)
PROC: HZ59ZZZ Individual Psychotherapy for Substance Abuse Treatment, Supportive (ICD-10-PCS; 2018-01-17)
DX: F11.23 Opioid dependence with withdrawal (principal); F14.20 Cocaine dependence, uncomplicated; F13.20 Sedative, hypnotic or anxiolytic dependence, uncomplicated; F17.210 Nicotine dependence, cigarettes, uncomplicated; N39.0 Urinary tract infection, site not specified; I10 Essential (primary) hypertension; K21.9 Gastro-esophageal reflux disease without esophagitis